=== PATIENT | male | born 1945 | race Caucasian/White ===

== ENCOUNTER 2019-01-17 12:26 | Inpatient (IN) ==
[2019-01-17 12:54] LABS: Bilirubin,Urine Negative (Negative); Blood,Urine Negative (Negative); Clarity,Urine Clear (Clear); Color,Urine Yellow (Yellow); Glucose,Urine (UA) >=1000 mg/dL (Normal); Ketones,Urine Negative (Negative); Leukocyte Esterase,Urine Negative (Negative); Nitrite,Urine Negative (Negative); PH,Urine 6.5 pH Units (5.0-8.0); Protein,Urine Negative (Neg-Trace); Specific Gravity,Urine 1.028 (1.010-1.025); Urobilinogen,Urine Normal (Normal)
[2019-01-17] MEDS: 0.9 % Sodium Chloride 1,000 ML IVC SCH ×5 (12:56→18:20)
[2019-01-17 13:03] LABS: Basophils # 0.1 K/mcL (0.0-0.2); Basophils % 0.7 %; Eosinophils % 0.1 %; Hematocrit 45.1 % (37.5-50.1); Hemoglobin 14.5 g/dL (12.9-16.9); Immature Granulocytes % 1.7 % (0-4); Lymphocytes % 6.7 %; Mean Corpuscular HGB Conc 32.2 g/dL (31.6-35.5); Mean Corpuscular Hemoglobin 29.5 pg (28.0-33.3); Mean Corpuscular Volume 91.7 fL (83.0-100.0); Mean Platelet Volume 11.7 fL (9.4-12.4); Monocytes # 1.3 K/mcL (0.0-1.3); Monocytes % 8.7 %; Neutrophils # 12.4 K/mcL (1.6-8.9); Platelet Count 388 K/mcL (140-400); Red Blood Count 4.92 M/mcL (4.19-5.50); Red Cell Distribution Width 12.5 % (11.5-14.5); Segmented Neutrophils % 82.1 %; White Blood Count 15.1 K/mcL (4.3-11.1)
[2019-01-17 13:07] LABS: VBG HCO3 19 mEq/L (21-27); VBG PCO2 29 mmHg (41-51); VBG PH 7.41 pH Units (7.32-7.42); VBG PO2 57 mmHg (25-50)
[2019-01-17 13:32] LABS: Calcium 9.8 mg/dL (8.6-10.3); Potassium 6.8 mEq/L (3.5-5.1); Troponin I 0.03 ng/mL (< 0.04)
[2019-01-17] MEDS ORDERED: *HR* Dextrose 50 % in Water (Syg) 50 ML SYRINGE IVP PRN (13:32)
[2019-01-17] MEDS ORDERED: 0.9 % Sodium Chloride 1,000 ML IVC ONE ×2 (13:32→13:39)
[2019-01-17] MEDS ORDERED: Insulin Human Regular 100 UNIT in 0.9 % Sodium Chloride 100 ML IVC SCH (13:45)
--- NOTE | 2019-01-17 13:52 | Emergency Department Note ---
Disposition Clinical Impression: Hyperkalemia Hyperglycemia due to type 2 diabetes mellitus Qualifiers: Diabetes mellitus half-way insulin use: without emt intermediate use Qualified Cod e(s): E11.65 - Type 2 diabetes mellitus with hyperglycemia Disposition: Admitted As Inpatient Condition: Fair Forms: ED Satisfaction Letter Time of Disposition: 14:02 Weakness HPI - General Chief complaint: ED Weakness Stated complaint: Weakness Time Seen by Provider: 01/17/19 12:29 Source: patient Mode of arrival: ambulatory Limitations: no limitations Nursing Notes Reviewed: Yes Vital Signs Reviewed: Yes - History of Present Illness HPI Narrative: 73-year-old male presents to the emergency department for generalized weakness. Does have history of diabetes. They said that he has had generalized weakness have been checking his blood sugars and they have been elevated. Does take metformin. Says been drinking a lot of milk said that sorry hydrate. Otherwise just feels weak family said he is not is normal self seems a little confused more recently. He has no fevers no chills no pain anywhere. He has no abdominal pain chest pain shortness of breath. Otherwise no other complaints at this time. Pain Scale: 0 - Related Data Home Medications Medication Instructions Recorded Confirmed Atorvastatin [Lipitor] 40 mg PO QPM 01/17/19 01/17/19 Cetirizine HCl 10 mg PO DAILY 01/17/19 01/17/19 Cyclobenzaprine [Flexeril] 10 mg PO TID 01/17/19 01/17/19 Esomeprazole Magnesium [Nexium] 40 mg PO DAILY 01/17/19 01/17/19 Ezetimibe 10 mg PO DAILY 01/17/19 01/17/19 Hydrochlorothiazide [Microzide] 12.5 mg PO DAILY 01/17/19 01/17/19 Losartan Potassium [Cozaar] 100 mg PO DAILY 01/17/19 01/17/19 Metformin HCl 500 mg PO DAILY 01/17/19 01/17/19 Pioglitazone HCl 30 mg PO DAILY 01/17/19 01/17/19 Tizanidine HCl 4 mg PO BID 01/17/19 01/17/19 Allergies Allergy/AdvReac Type Severity Reaction Status Date / Time bee venom protein (honey bee) Allergy Anaphylaxis Verified 01/17/19 13:02 [place] Allergy Swelling Verified 01/17/19 13:02 of Lip/Tongue/Throat All systems ED: reviewed and negative except as stated. Review of Systems: As Per HPI Past Medical History - Past Medical History Attestation: Yes The following information was validated with the patient. Source: patient Medical history: Reports: coronary artery disease, diabetes, hyperlipidemia, hypertension Psychiatric history: Reports: no psych history - Social History Smoking Status: Current every day smoker Alcohol use: Reports: none Drug use: Reports: none Physical Exam - General Limitations: no limitations General appearance: alert, anxious - Head Head exam: atraumatic, normocephalic, normal inspection - Eye Eye exam: Present: normal appearance, PERRL, EOMI - ENT ENT exam: normal exam, normal oropharynx, mucous membranes moist - Neck Neck exam: Present: normal inspection, full ROM, trachea midline - Chest Chest inspection: Present: normal inspection, symmetric chest wall rise - Respiratory Respiratory exam: Present: normal lung sounds bilaterally - Cardiovascular Cardiovascular exam: Present: regular rate, normal rhythm, normal heart sounds - Abdominal Exam Abdominal exam: Present: soft, Non-Tender, normal bowel sounds. Absent: tenderness, distention, guarding, rebound, rigidity - Extremities Exam Extremities exam: Present: normal inspection, full ROM. Absent: tenderness, pedal edema - Back Exam Back exam: Present: normal inspection, full ROM. Absent: tenderness, CVA tenderness (R), CVA tenderness (L) - Neurological Exam Neurological exam: Present: alert, oriented X3 - Skin Skin exam: Present: warm, dry, intact, normal color Course Vital Signs Temperature 97.9 F 01/17/19 12:29 Pulse Rate 111 01/17/19 12:29 Respiratory Rate 18 01/17/19 12:29 Blood Pressure 146/96 01/17/19 12:29 O2 Sat by Pulse Oximetry 97 01/17/19 12:29 Temperature 97.9 F 01/17/19 12:29 Pulse Rate 111 01/17/19 12:29 Respiratory Rate 18 01/17/19 12:29 Blood Pressure 146/96 01/17/19 12:29 O2 Sat by Pulse Oximetry 97 01/17/19 12:29 Weakness - MDM Narrative Medical decision making narrative: Patient elevated blood sugar on exam when he first arrived. Patient is alert and oriented with the seem mildly confused and they Jeramie is normal active self. Patient has been drinking a lot of fluid as well as been urinating a lot. The chair came back elevated 1400 he did not have an anion gap potassium was 6 there were no acute EKG changes are no signs of ectopy on telemetry. We will start patient on insulin 0.1 units per kilogram. As well as a total of 4 L of IV fluids. EKG did not show any acute signs. Patient did have decreased sodium but the corrected with glucose is 123. Spoke with the hospital to check and bed management to see if they are okay to take this on the floor versus whether this being an ICU admission. Patient will be admitted to either the batch trucker or the hospitalist at this time. Chest X-Ray 01/17/19 12:55 IMPRESSION: No acute findings D/ / Tila Munoz MD / Tila Munoz MD Interpreting Provider: Tila Munoz MD - Medical Records Medical records reviewed: Yes I reviewed the patient's medical records. - Lab Data Lab results reviewed: Yes I reviewed the patient's lab results. Result diagrams: 01/17/19 12:45 01/17/19 12:45 Lab Results 01/17/19 01/17/19 01/17/19 Range/Units 12:39 12:45 12:45 WBC 15.1 H (4.3-11.1) K/mcL RBC 4.92 (4.19-5.50) M/mcL Hgb 14.5 (12.9-16.9) g/dL Hct 45.1 (37.5-50.1) % MCV 91.7 (83.0-100.0) fL MCH 29.5 (28.0-33.3) pg MCHC 32.2 (31.6-35.5) g/dL RDW 12.5 (11.5-14.5) % Plt Count 388 (140-400) K/mcL MPV 11.7 (9.4-12.4) fL Immature Gran % 1.7 (0-4) % Seg Neutrophils % 82.1 % Lymphocytes % 6.7 % Monocytes % 8.7 % Eosinophils % 0.1 % Basophils % 0.7 % Neutrophils # 12.4 H (1.6-8.9) K/mcL Lymphocytes # 1.0 (0.6-4.6) K/mcL Monocytes # 1.3 (0.0-1.3) K/mcL Eosinophils # 0.0 (0.0-0.6) K/mcL Basophils # 0.1 (0.0-0.2) K/mcL VBG pH (7.32-7.42) pH Units VBG pCO2 (41-51) mmHg VBG pO2 (25-50) mmHg VBG HCO3 (21-27) mEq/L Sodium 109 L* (136-145) mEq/L Potassium 6.8 H* (3.5-5.1) mEq/L Chloride 78 L (98-107) mEq/L Carbon Dioxide 18 L (23-29) mEq/L BUN 49 H (8-23) mg/dL Creatinine 1.98 H (0.70-1.30) mg/dL Est GFR ( Amer) 40 L (> 60) Est GFR (Non-Af Amer) 33 L (> 60) BUN/Creatinine Ratio 25 (6-26) Glucose 1497 H* (70-105) mg/dL Calculated Osmolality 319 H (280-300) Lactic Acid (0.5-2.2) mmol/L Calcium 9.8 (8.6-10.3) mg/dL Troponin I 0.03 (< 0.04) ng/mL Beta-Hydroxybutyric Acd (0.02-0.27) mmol/L Urine Color Yellow (Yellow) Urine Clarity Clear (Clear) Urine pH 6.5 (5.0-8.0) pH Units Ur Specific [place] 1.028 H (1.010-1.025) Urine Protein Negative (Neg-Trace) mg/dL Urine Glucose (UA) >=1000 H (Normal) mg/dL Urine Ketones Negative (Negative) mg/dL Urine Blood Negative (Negative) Urine Nitrite Negative (Negative) Urine Bilirubin Negative (Negative) Urine Urobilinogen Normal (Normal) mg/dL Ur Leukocyte Esterase Negative (Negative) Ur Culture Indicated? NO (NO) 01/17/19 01/17/19 01/17/19 Range/Units 12:45 12:45 13:05 WBC (4.3-11.1) K/mcL RBC (4.19-5.50) M/mcL Hgb (12.9-16.9) g/dL Hct (37.5-50.1) % MCV (83.0-100.0) fL MCH (28.0-33.3) pg MCHC (31.6-35.5) g/dL RDW (11.5-14.5) % Plt Count (140-400) K/mcL MPV (9.4-12.4) fL Immature Gran % (0-4) % Seg Neutrophils % % Lymphocytes % % Monocytes % % Eosinophils % % Basophils % % Neutrophils # (1.6-8.9) K/mcL Lymphocytes # (0.6-4.6) K/mcL Monocytes # (0.0-1.3) K/mcL Eosinophils # (0.0-0.6) K/mcL Basophils # (0.0-0.2) K/mcL VBG pH 7.41 (7.32-7.42) pH Units VBG pCO2 29 L (41-51) mmHg VBG pO2 57 H (25-50) mmHg VBG HCO3 19 L (21-27) mEq/L Sodium (136-145) mEq/L Potassium (3.5-5.1) mEq/L Chloride (98-107) mEq/L Carbon Dioxide (23-29) mEq/L BUN (8-23) mg/dL Creatinine (0.70-1.30) mg/dL Est GFR ( Amer) (> 60) Est GFR (Non-Af Amer) (> 60) BUN/Creatinine Ratio (6-26) Glucose (70-105) mg/dL Calculated Osmolality (280-300) Lactic Acid 3.0 H (0.5-2.2) mmol/L Calcium (8.6-10.3) mg/dL Troponin I (< 0.04) ng/mL Beta-Hydroxybutyric Acd 1.38 H (0.02-0.27) mmol/L Urine Color (Yellow) Urine Clarity (Clear) Urine pH (5.0-8.0) pH Units Ur Specific [place] (1.010-1.025) Urine Protein (Neg-Trace) mg/dL Urine Glucose (UA) (Normal) mg/dL Urine Ketones (Negative) mg/dL Urine Blood (Negative) Urine Nitrite (Negative) Urine Bilirubin (Negative) Urine Urobilinogen (Normal) mg/dL Ur Leukocyte Esterase (Negative) Ur Culture Indicated? (NO) - Radiology Data Radiology results reviewed: Yes I reviewed the patient's radiology results. - EKG Data EKG attestation: Yes I reviewed and interpreted this EKG. EKG results narrative: EKG done at 1237 review myself and attending shows sinus rhythm rate of 112, MT interval 205, QRS 96, QTC 428. No acute ST changes there are hyperacute T waves no other T-wave changes. No other signs of ischemia. No signs of hypertrophy, heart, heart block. No WPW/Brug[place]/HOCM. No changes based on old EKG done 05/04/2004
[2019-01-17] MEDS ORDERED: D5% in 0.45% NACL 1,000 ML IVC PRN (14:04)
[2019-01-17] MEDS ORDERED: Naloxone 0.4 MG/ML INJ IVP PRN (14:13)
[2019-01-17] MEDS ORDERED: Insulin Regular, Human 100 UNIT/ML IV ONE (14:15)
--- NOTE | 2019-01-17 14:20 | Emergency Department Note ---
Disposition Clinical Impression: Hyperkalemia Hyperglycemia due to type 2 diabetes mellitus Qualifiers: Diabetes mellitus intermediate insulin use: without termite exterminator helper use Qualified Cod e(s): E11.65 - Type 2 diabetes mellitus with hyperglycemia Disposition: Admitted As Inpatient Condition: Fair Forms: ED Satisfaction Letter Time of Disposition: 14:20 General Adult HPI - General Chief complaint: ED Weakness Stated complaint: Weakness Time Seen by Provider: 01/17/19 12:29 Source: patient Mode of arrival: ambulatory Limitations: no limitations - History of Present Illness Pain Scale: 0 - Related Data Home Medications Medication Instructions Recorded Confirmed Atorvastatin [Lipitor] 40 mg PO QPM 01/17/19 01/17/19 Cetirizine HCl 10 mg PO DAILY 01/17/19 01/17/19 Cyclobenzaprine [Flexeril] 10 mg PO TID 01/17/19 01/17/19 Esomeprazole Magnesium [Nexium] 40 mg PO DAILY 01/17/19 01/17/19 Ezetimibe 10 mg PO DAILY 01/17/19 01/17/19 Hydrochlorothiazide [Microzide] 12.5 mg PO DAILY 01/17/19 01/17/19 Losartan Potassium [Cozaar] 100 mg PO DAILY 01/17/19 01/17/19 Metformin HCl 500 mg PO DAILY 01/17/19 01/17/19 Pioglitazone HCl 30 mg PO DAILY 01/17/19 01/17/19 Tizanidine HCl 4 mg PO BID 01/17/19 01/17/19 Allergies Allergy/AdvReac Type Severity Reaction Status Date / Time bee venom protein (honey bee) Allergy Anaphylaxis Verified 01/17/19 13:02 [place] Allergy Swelling Verified 01/17/19 13:02 of Lip/Tongue/Throat Past Medical History - Past Medical History Medical history: Reports: coronary artery disease, diabetes, hyperlipidemia, hypertension Psychiatric history: Reports: no psych history - Social History Smoking Status: Current every day smoker Alcohol use: Reports: none Drug use: Reports: none Physical Exam - General Limitations: no limitations General appearance: alert, anxious Course Vital Signs Temperature 97.9 F 01/17/19 12:29 Pulse Rate 111 01/17/19 12:29 Respiratory Rate 18 01/17/19 12:29 Blood Pressure 146/96 01/17/19 12:29 O2 Sat by Pulse Oximetry 97 01/17/19 12:29 Temperature 97.9 F 01/17/19 12:29 Pulse Rate 111 01/17/19 12:29 Respiratory Rate 18 01/17/19 12:29 Blood Pressure 146/96 01/17/19 12:29 O2 Sat by Pulse Oximetry 97 01/17/19 12:29 Medical Decision Making - Lab Data Result diagrams: 01/17/19 12:45 01/17/19 12:45 Lab Results 01/17/19 01/17/19 01/17/19 Range/Units 12:39 12:39 12:39 WBC (4.3-11.1) K/mcL RBC (4.19-5.50) M/mcL Hgb (12.9-16.9) g/dL Hct (37.5-50.1) % MCV (83.0-100.0) fL MCH (28.0-33.3) pg MCHC (31.6-35.5) g/dL RDW (11.5-14.5) % Plt Count (140-400) K/mcL MPV (9.4-12.4) fL Immature Gran % (0-4) % Seg Neutrophils % % Lymphocytes % % Monocytes % % Eosinophils % % Basophils % % Neutrophils # (1.6-8.9) K/mcL Lymphocytes # (0.6-4.6) K/mcL Monocytes # (0.0-1.3) K/mcL Eosinophils # (0.0-0.6) K/mcL Basophils # (0.0-0.2) K/mcL VBG pH (7.32-7.42) pH Units VBG pCO2 (41-51) mmHg VBG pO2 (25-50) mmHg VBG HCO3 (21-27) mEq/L Sodium (136-145) mEq/L Potassium (3.5-5.1) mEq/L Chloride (98-107) mEq/L Carbon Dioxide (23-29) mEq/L BUN (8-23) mg/dL Creatinine (0.70-1.30) mg/dL Est GFR ( Amer) (> 60) Est GFR (Non-Af Amer) (> 60) BUN/Creatinine Ratio (6-26) Glucose (70-105) mg/dL POC Glucose > 600 H* > 600 H* (70-99) mg/dL Calculated Osmolality (280-300) Lactic Acid (0.5-2.2) mmol/L Calcium (8.6-10.3) mg/dL Troponin I (< 0.04) ng/mL Beta-Hydroxybutyric Acd (0.02-0.27) mmol/L Urine Color Yellow (Yellow) Urine Clarity Clear (Clear) Urine pH 6.5 (5.0-8.0) pH Units Ur Specific [place] 1.028 H (1.010-1.025) Urine Protein Negative (Neg-Trace) mg/dL Urine Glucose (UA) >=1000 H (Normal) mg/dL Urine Ketones Negative (Negative) mg/dL Urine Blood Negative (Negative) Urine Nitrite Negative (Negative) Urine Bilirubin Negative (Negative) Urine Urobilinogen Normal (Normal) mg/dL Ur Leukocyte Esterase Negative (Negative) Ur Culture Indicated? NO (NO) 01/17/19 01/17/19 01/17/19 Range/Units 12:45 12:45 12:45 WBC 15.1 H (4.3-11.1) K/mcL RBC 4.92 (4.19-5.50) M/mcL Hgb 14.5 (12.9-16.9) g/dL Hct 45.1 (37.5-50.1) % MCV 91.7 (83.0-100.0) fL MCH 29.5 (28.0-33.3) pg MCHC 32.2 (31.6-35.5) g/dL RDW 12.5 (11.5-14.5) % Plt Count 388 (140-400) K/mcL MPV 11.7 (9.4-12.4) fL Immature Gran % 1.7 (0-4) % Seg Neutrophils % 82.1 % Lymphocytes % 6.7 % Monocytes % 8.7 % Eosinophils % 0.1 % Basophils % 0.7 % Neutrophils # 12.4 H (1.6-8.9) K/mcL Lymphocytes # 1.0 (0.6-4.6) K/mcL Monocytes # 1.3 (0.0-1.3) K/mcL Eosinophils # 0.0 (0.0-0.6) K/mcL Basophils # 0.1 (0.0-0.2) K/mcL VBG pH (7.32-7.42) pH Units VBG pCO2 (41-51) mmHg VBG pO2 (25-50) mmHg VBG HCO3 (21-27) mEq/L Sodium 109 L* (136-145) mEq/L Potassium 6.8 H* (3.5-5.1) mEq/L Chloride 78 L (98-107) mEq/L Carbon Dioxide 18 L (23-29) mEq/L BUN 49 H (8-23) mg/dL Creatinine 1.98 H (0.70-1.30) mg/dL Est GFR ( Amer) 40 L (> 60) Est GFR (Non-Af Amer) 33 L (> 60) BUN/Creatinine Ratio 25 (6-26) Glucose 1497 H* (70-105) mg/dL POC Glucose (70-99) mg/dL Calculated Osmolality 319 H (280-300) Lactic Acid (0.5-2.2) mmol/L Calcium 9.8 (8.6-10.3) mg/dL Troponin I 0.03 (< 0.04) ng/mL Beta-Hydroxybutyric Acd 1.38 H (0.02-0.27) mmol/L Urine Color (Yellow) Urine Clarity (Clear) Urine pH (5.0-8.0) pH Units Ur Specific [place] (1.010-1.025) Urine Protein (Neg-Trace) mg/dL Urine Glucose (UA) (Normal) mg/dL Urine Ketones (Negative) mg/dL Urine Blood (Negative) Urine Nitrite (Negative) Urine Bilirubin (Negative) Urine Urobilinogen (Normal) mg/dL Ur Leukocyte Esterase (Negative) Ur Culture Indicated? (NO) 01/17/19 01/17/19 Range/Units 12:45 13:05 WBC (4.3-11.1) K/mcL RBC (4.19-5.50) M/mcL Hgb (12.9-16.9) g/dL Hct (37.5-50.1) % MCV (83.0-100.0) fL MCH (28.0-33.3) pg MCHC (31.6-35.5) g/dL RDW (11.5-14.5) % Plt Count (140-400) K/mcL MPV (9.4-12.4) fL Immature Gran % (0-4) % Seg Neutrophils % % Lymphocytes % % Monocytes % % Eosinophils % % Basophils % % Neutrophils # (1.6-8.9) K/mcL Lymphocytes # (0.6-4.6) K/mcL Monocytes # (0.0-1.3) K/mcL Eosinophils # (0.0-0.6) K/mcL Basophils # (0.0-0.2) K/mcL VBG pH 7.41 (7.32-7.42) pH Units VBG pCO2 29 L (41-51) mmHg VBG pO2 57 H (25-50) mmHg VBG HCO3 19 L (21-27) mEq/L Sodium (136-145) mEq/L Potassium (3.5-5.1) mEq/L Chloride (98-107) mEq/L Carbon Dioxide (23-29) mEq/L BUN (8-23) mg/dL Creatinine (0.70-1.30) mg/dL Est GFR ( Amer) (> 60) Est GFR (Non-Af Amer) (> 60) BUN/Creatinine Ratio (6-26) Glucose (70-105) mg/dL POC Glucose (70-99) mg/dL Calculated Osmolality (280-300) Lactic Acid 3.0 H (0.5-2.2) mmol/L Calcium (8.6-10.3) mg/dL Troponin I (< 0.04) ng/mL Beta-Hydroxybutyric Acd (0.02-0.27) mmol/L Urine Color (Yellow) Urine Clarity (Clear) Urine pH (5.0-8.0) pH Units Ur Specific [place] (1.010-1.025) Urine Protein (Neg-Trace) mg/dL Urine Glucose (UA) (Normal) mg/dL Urine Ketones (Negative) mg/dL Urine Blood (Negative) Urine Nitrite (Negative) Urine Bilirubin (Negative) Urine Urobilinogen (Normal) mg/dL Ur Leukocyte Esterase (Negative) Ur Culture Indicated? (NO) Attestation Statement - Attestation Attestation: I reviewed the residents documentation and agree with the residents assessment and plan of care. I have personally had face to face time with the patient. (Brief History, Brief Exam, and MDM) I personally supervised and was present for the [place]/critical portions of the following procedures completed by the resident: EKG 73 mariluz old male presents to the eD with complaints of hyperglycemia and weakness. He appears to have a blood glucose of 1497 without a gap presnets or acidosis and mild ketones. This is lkely a HHS presentation and patinet had potassium of 6.8 which will likely decreased during IVF therapy and insulin ther apy. Disscussed case with pharmacy and we will admit ot medicine possibly ICU with potassium recheck every 2 hours
[2019-01-17] MEDS ORDERED: D5% in 0.45% NACL w KCl 20 MEQ/1,000 ML MLS IVC PRN (14:45)
--- NOTE | 2019-01-17 14:46 | Internal Med History&Physical ---
Date of Encounter: 01/17/19 Time of Encounter: 14:16 Internal Medicine - H&P: HPI Chief complaint: Weakness Admitted From: Home Plans for Post Hospital Care: Home History of present illness: Mr. Mcadams is a 73 year old male with hx of NIDDM and HLD presents with generalized weakness and found to be in HHS. Patient says that he has been feeling generally weak for 2 months now. Has polyuria and polydipsia and says that all water he drinks goes right through him. Is on metformin and pioglitazone for his diabetes. Says that over the last 2 months when he takes his blood sugar just as high. Has never been on insulin before. Follows with Dr. Marlee Shah for his diabetes. Has a cough but says this is because his mouth is so dry. Not coughing anything up. Denies shortness of breath, chest pain, abdominal pain, nausea, or vomiting. Besides the polyuria, no other urinary symptoms. Denies dysuria. Very profound generalized weakness. Denies focal weakness, numbness, or tingling. Denies nausea or vomiting. Past Med Surg Social Fam HX - Past Medical History Medical history: coronary artery disease, diabetes, hyperlipidemia, hypertension Additional medical history: Type 1 diabetes Psychiatric history: no psych history - Past Surgical History Additional surgical history: Surgical mesh - Social History Smoking Status: Current every day smoker Alcohol use: none Drug use: none Internal Medicine - H&P: Meds Atorvastatin [Lipitor] 40 mg PO QPM 01/17/19 [History] Cetirizine HCl 10 mg PO DAILY 01/17/19 [History] Cyclobenzaprine [Flexeril] 10 mg PO TID 01/17/19 [History] Esomeprazole Magnesium [Nexium] 40 mg PO DAILY 01/17/19 [History] Ezetimibe 10 mg PO DAILY 01/17/19 [History] Hydrochlorothiazide [Microzide] 12.5 mg PO DAILY 01/17/19 [History] Losartan Potassium [Cozaar] 100 mg PO DAILY 01/17/19 [History] Metformin HCl 500 mg PO DAILY 01/17/19 [History] Pioglitazone HCl 30 mg PO DAILY 01/17/19 [History] Tizanidine HCl 4 mg PO BID 01/17/19 [History] Allergy/AdvReac Type Severity Reaction Status Date / Time bee venom protein (honey bee) Allergy Anaphylaxis Verified 01/17/19 13:02 [place] Allergy Swelling Verified 01/17/19 13:02 of Lip/Tongue/Throat Review of systems: General: Fevers / Chills / Weight loss / Night sweats Eyes: Blurry Vision / Change in Vision HENT: Ear Pain / Ear Drainage / Rhinorrhea / Throat Pain / Lymphadenopathy Cardiovascular: Chest Pain / Palpatations / Orthopnea / VILLEDA / Weight gain Lungs: Dyspnea / Wheezing / Cough / Sputum production / Pleurisy Abdomen: Abdomen pain / Abdominal distention / Nausea / Vomiting / Diarrhea / Const : Dysuria / Urinary Frequency / Urinary Urgency / Hematuria / Polyuria Extremities: LE edema / Ext pain / Ext erythema Skin: Rashes / Abrasions / Contusions Psych: Hallucinations / Anxiety / Depression Neuro: Weakness / Numbness / Tingling / Facial Droop / Dysphagia - Constitutional Vitals: Temp Pulse Resp BP Pulse Ox 97.9 F 111 18 146/96 97 01/17/19 12:29 01/17/19 12:29 01/17/19 12:29 01/17/19 12:29 01/17/19 12:29 Exam: General: Ill-appearing and in no acute distress. Frail appearing. HEENT: No erythema of posterior pharynx. No exudates. Lymphatics: No mandibular or cervical lymphadenopathy Cardiovascular: RRR. No murmurs. No chest wall tenderness. Lungs: Clear to auscelltation bilaterally. Regular chest rise. Abdomen: Non-tender. No rebound or gaurding. Nl bowel sounds. Extremities: No edema. 2+ pulses radial and pedal pulses Skin: No rahses, abrasions, or contusions. Nl cap refill. Psych: Nl attention. A&Ox3 Neuro: marble cutter II-XII intact. Diffuse 3/5 strength. Sensation to light touch and pinprick intact. [id number]-[id number] and ROM intact. No PD. Internal Med - H&P Results - Labs CBC & Chem 7: 01/17/19 12:45 01/17/19 14:42 Labs: Short CBC 01/17/19 Range/Units 12:45 WBC 15.1 H (4.3-11.1) K/mcL Hgb 14.5 (12.9-16.9) g/dL Hct 45.1 (37.5-50.1) % Plt Count 388 (140-400) K/mcL Neutrophils # 12.4 H (1.6-8.9) K/mcL BMP 01/17/19 12:45 Sodium 109 L* Potassium 6.8 H* Chloride 78 L Carbon Dioxide 18 L BUN 49 H Creatinine 1.98 H Glucose 1497 H* Calcium 9.8 Cardiac Enzymes 01/17/19 Range/Units 12:45 Troponin I 0.03 (< 0.04) ng/mL Urine 01/17/19 Range/Units 12:39 Urine Color Yellow (Yellow) Urine Clarity Clear (Clear) Urine pH 6.5 (5.0-8.0) pH Units Ur Specific [place] 1.028 H (1.010-1.025) Urine Protein Negative (Neg-Trace) mg/dL Urine Glucose (UA) >=1000 H (Normal) mg/dL - ABG Interpretation ABG results: 01/17/19 13:05 VBG pH 7.41 VBG pCO2 29 L VBG pO2 57 H VBG HCO3 19 L - Impressions ITS Impressions Chest X-Ray 01/17/19 12:55 IMPRESSION: No acute findings D/ / Tila Munoz MD / Tila Munoz MD Interpreting Provider: Tila Munoz MD - Assessment and Plan (1) Hyperglycemic hyperosmolar nonketotic coma Current Visit: Yes Status: Acute Assessment and plan: Patient with hx of NIDDM and HLD presents with generalized weakness in the setting of normal vitals, profound generalized weakness on exam, and glucose of 1497 on admission with Occluded serum osmolality of 320 w/o AG. -Meets diagnostic criteria of HHS: Suspect this has been progressing for quite some time Notes generalized weakness for 2 months Over this time, cbgs so high that glucometer only reads as "high" -Possible inciting causes: Likely undertreated diabetes. HgA1c of 18.7 Leukocytosis but no evidence of infection History of hyperlipidemia so will add on lipase but notably no abdominal pain Troponin negative and no EKG changes PLAN: - HHS protocol with insulin drip and aggressive IVF and K replacement - BMP q6 - Blood cultures and low threshold for further w/u and to start empiric ABs (2) Diabetes Current Visit: Yes Status: Acute Assessment and plan: Hx of NIDDM. Clearly this patient will need to be discharged on insulin. - Interventions per above Qualifiers: Diabetes mellitus type: type 2 Diabetes mellitus penitentiary insulin use: without moth exterminator use Diabetes mellitus complication status: with hyperglycem ia Qualified Code(s): E11.65 - Type 2 diabetes mellitus with hyperglycemia (3) Metabolic acidosis Current Visit: Yes Status: Acute Assessment and plan: Mild NAGMA secondary to metabolic derangements from HHS. (4) Respiratory alkalosis Current Visit: Yes Status: Acute Assessment and plan: Secondary to HHS (5) Hyponatremia Current Visit: Yes Status: Acute Assessment and plan: Pseudohyponatremia in setting of HHS. Corrected sodium on admission 143. (6) CKD (chronic kidney disease) stage 3, GFR 30-59 ml/min Current Visit: Yes Status: Acute Assessment and plan: Surprisingly at his baseline (7) Leukocytosis Current Visit: Yes Status: Acute Assessment and plan: No evidence of acute infection. - Blood cultures and low threshold for further w/u and to start empiric ABs Qualifiers: Leukocytosis type: unspecified Qualified Code(s): D72.829 - Elevated white blood cell count, unspecified (8) Hyperkalemia Current Visit: Yes Status: Acute Assessment and plan: We will rapidly corrected with insulin drip
[2019-01-17 15:30] LABS: Albumin 3.4 g/dL (3.5-5.7); BUN/Creatinine Ratio 27 (6-26); Blood Urea Nitrogen 47 mg/dL (8-23); Calcium 8.4 mg/dL (8.6-10.3); Carbon Dioxide 19 mEq/L (23-29); Chloride 90 mEq/L (98-107); Chol/HDL Ratio 4.4 (0-4.9); Cholesterol 110 mg/dL (< 200); HDL Cholesterol 25 mg/dL (40-59); Lipase 167 Units/L (11-82); Magnesium 1.8 mg/dL (1.6-2.6); Osmolality,Calculated 320 (280-300); Phosphorous 2.6 mg/dL (2.7-4.5); Potassium 5.4 mEq/L (3.5-5.1); Sodium 118 mEq/L (136-145); Triglycerides 666 mg/dL (< 150); eGFR For African Americans 48 (> 60); eGFR For Non-African Americans 39 (> 60)
[2019-01-17] MEDS: Insulin Human Regular 100 UNIT in 0.9 % Sodium Chloride 100 ML IVC SCH (16:21)
[2019-01-17 17:58] LABS: Calcium 8.6 mg/dL (8.6-10.3); Potassium 4.8 mEq/L (3.5-5.1)
[2019-01-17] MEDS: *HR* Heparin 5,000 UNIT/ML VIAL SQ SCH (18:05)
[2019-01-17] MEDS: 0.9 % Sodium Chloride w KCl 20 MEQ/1,000 ML MLS IVC SCH ×3 (18:21→23:35)
[2019-01-17 22:36] LABS: Calcium 8.8 mg/dL (8.6-10.3); Potassium 4.7 mEq/L (3.5-5.1)
[2019-01-18 00:02] LABS: Glucose 1215 mg/dL (70-105)
[2019-01-18 01:20] LABS: Basophils # 0.1 K/mcL (0.0-0.2); Basophils % 0.5 %; Eosinophils # 0.3 K/mcL (0.0-0.6); Eosinophils % 1.5 %; Hematocrit 33.3 % (37.5-50.1); Immature Granulocytes % 1.5 % (0-4); Lymphocytes # 4.7 K/mcL (0.6-4.6); Lymphocytes % 23.5 %; Mean Corpuscular HGB Conc 34.5 g/dL (31.6-35.5); Mean Corpuscular Hemoglobin 29.3 pg (28.0-33.3); Mean Platelet Volume 11.6 fL (9.4-12.4); Monocytes # 1.8 K/mcL (0.0-1.3); Monocytes % 8.9 %; Neutrophils # 12.9 K/mcL (1.6-8.9); Platelet Count 280 K/mcL (140-400); Red Blood Count 3.93 M/mcL (4.19-5.50); Red Cell Distribution Width 11.4 % (11.5-14.5); Segmented Neutrophils % 64.1 %; White Blood Count 20.1 K/mcL (4.3-11.1)
[2019-01-18 01:21] LABS: Hemoglobin 11.5 g/dL (12.9-16.9); Mean Corpuscular Volume 84.7 fL (83.0-100.0)
[2019-01-18 01:37] LABS: BUN/Creatinine Ratio 24 (6-26); Blood Urea Nitrogen 33 mg/dL (8-23); Calcium 8.5 mg/dL (8.6-10.3); Carbon Dioxide 22 mEq/L (23-29); Chloride 113 mEq/L (98-107); Potassium 4.4 mEq/L (3.5-5.1); Sodium 138 mEq/L (136-145); eGFR For African Americans > 60 (> 60); eGFR For Non-African Americans 50 (> 60)
[2019-01-18] MEDS: 0.9 % Sodium Chloride w KCl 20 MEQ/1,000 ML MLS IVC SCH (02:20)
[2019-01-18 02:41] LABS: Glucose 381 mg/dL (70-105); Osmolality,Calculated 309 (280-300)
[2019-01-18] MEDS: Insulin Human Regular 100 UNIT in 0.9 % Sodium Chloride 100 ML IVC SCH (03:42)
[2019-01-18] MEDS: *HR* Heparin 5,000 UNIT/ML VIAL SQ SCH ×2 (04:34→17:01)
[2019-01-18] MEDS ORDERED: D5% in Water 1,000 ML IVC PRN (04:39)
[2019-01-18] MEDS ORDERED: Dextrose Gel 15 GM/37.5 ML TUBE PO PRN ×2 (04:39)
[2019-01-18] MEDS ORDERED: Insulin DETEMIR 100 UNIT/ML X5UNITS SQ ONE (04:39)
[2019-01-18] MEDS ORDERED: *HR* Dextrose 50 % in Water (Syg) 50 ML SYRINGE IVP PRN (04:39)
[2019-01-18] MEDS ORDERED: Insulin LISPRO 300 UNITS/3 ML VIAL SQ SCH ×3 (07:30→21:00)
--- NOTE | 2019-01-18 09:05 | Internal Med Progress Note ---
Hospitalist Progress Note - Encounter Date of Encounter: 01/18/19 Time of Encounter: 09:02 - Subjective Interval History: Patient seen and examined. Patient is now off of insulin drip and tolerating PO diet. Patient notes he is still weak but feeling better. Transfer patient to telemetry floor. - Exam Vitals: Temp Pulse Resp BP Pulse Ox 98.0 F 83 16 133/82 93 01/18/19 07:01 01/18/19 08:15 01/18/19 07:01 01/18/19 07:01 01/18/19 08:15 Exam: General: Ill-appearing and in no acute distress. Frail appearing. HEENT: No erythema of posterior pharynx. No exudates. Lymphatics: No mandibular or cervical lymphadenopathy Cardiovascular: RRR. No murmurs. No chest wall tenderness. Lungs: Clear to auscelltation bilaterally. Regular chest rise. Abdomen: Non-tender. No rebound or gaurding. Nl bowel sounds. Extremities: No edema. 2+ pulses radial and pedal pulses Skin: No rahses, abrasions, or contusions. Nl cap refill. Psych: Nl attention. 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 Diffuse 3/5 strength. Sensation to light touch and pinprick intact. Nzsvci-[id number]-whimlx and ROM intact. No PD. - Assessment and Plan (1) Hyperglycemic hyperosmolar nonketotic coma Current Visit: Yes Status: Acute Assessment and Plan: Patient with hx of NIDDM and HLD presents with generalized weakness in the setting of normal vitals, profound generalized weakness on exam, and glucose of 1497 on admission with Occluded serum osmolality of 320 w/o AG. -Patient responded well to insulin drip and aggressive IVF -FSBS down to 100s and patient tolerating PO diet -electrolytes stable PLAN: - Continue sliding scale subq insulin; patient will need insuiln on discharge with A1C >18 - Diabetes education - Transfer to telemtry floor (2) Diabetes Current Visit: Yes Status: Acute Assessment and Plan: Hx of NIDDM. Clearly this patient will need to be discharged on insulin. - Interventions per above (3) Metabolic acidosis Current Visit: Yes Status: Acute Assessment and Plan: Mild NAGMA secondary to metabolic derangements from HHS; improved (4) Hyponatremia Current Visit: Yes Status: Acute (5) CKD (chronic kidney disease) stage 3, GFR 30-59 ml/min Current Visit: Yes Status: Acute (6) Leukocytosis Current Visit: Yes Status: Acute (7) Leukocytosis Current Visit: Yes Status: Acute Assessment and Plan: Leukocytosis worse form admission; no overt signs of infection; AFVSS, CXR on ad misison stable Plan: repeat lactic acid and procal Hold abx for now as there is no clear signs of infection besides leukocytosis - Time Spent with Patient Total time spent is greater than 50% in coordination of care (as documented) at patient's floor/unit and/or counseling patient: 35 Plan of Care Discussed with: patient Internal Medicine: Result - Labs CBC & Chem 7: 01/18/19 00:40 01/18/19 00:40 Labs: Short CBC 01/17/19 01/18/19 Range/Units 12:45 00:40 WBC 15.1 H 20.1 H (4.3-11.1) K/mcL Hgb 14.5 11.5 L D (12.9-16.9) g/dL Hct 45.1 33.3 L (37.5-50.1) % Plt Count 388 280 (140-400) K/mcL Neutrophils # 12.4 H 12.9 H (1.6-8.9) K/mcL BMP 01/17/19 01/17/19 01/17/19 12:45 14:42 15:59 Sodium 109 L* 118 L* D Potassium 6.8 H* 5.4 H Chloride 78 L 90 L Carbon Dioxide 18 L 19 L BUN 49 H 47 H Creatinine 1.98 H 1.71 H Glucose 1497 H* 1215 H* 984 H* Calcium 9.8 8.4 L 01/17/19 01/17/19 01/17/19 17:17 18:21 21:54 Sodium 129 L D 133 L Potassium 4.8 4.7 Chloride 99 105 Carbon Dioxide 20 L 20 L BUN 41 H 36 H Creatinine 1.60 H 1.45 H Glucose 743 H* 642 H* 519 H* Calcium 8.6 8.8 01/18/19 00:40 Sodium 138 Potassium 4.4 Chloride 113 H Carbon Dioxide 22 L BUN 33 H Creatinine 1.39 H Glucose 381 H Calcium 8.5 L Cardiac Enzymes 01/17/19 Range/Units 12:45 Troponin I 0.03 (< 0.04) ng/mL Liver Function 01/17/19 Range/Units 14:42 Albumin 3.4 L (3.5-5.7) g/dL Urine 01/17/19 Range/Units 12:39 Urine Color Yellow (Yellow) Urine Clarity Clear (Clear) Urine pH 6.5 (5.0-8.0) pH Units Ur Specific [place] 1.028 H (1.010-1.025) Urine Protein Negative (Neg-Trace) mg/dL Urine Glucose (UA) >=1000 H (Normal) mg/dL - Impressions Impressions Chest X-Ray 01/17/19 12:55 IMPRESSION: No acute findings D/ / Tila Munoz MD / Tila Munoz MD Interpreting Provider: Tila Munoz MD Consult Discharge Plan - Plan Referrals: NONE,PCP [Primary Care Provider] - (2) Diabetes Qualifiers: Diabetes mellitus type: type 2 Diabetes mellitus mcfp insulin use: without long term care pharmacist use Diabetes mellitus complication status: with hyperglycemia Qualified Code(s): E11.65 - Type 2 diabetes mellitus with hyperglycemia (6) Leukocytosis Qualifiers: Leukocytosis type: unspecified Qualified Code(s): D72.829 - Elevated white blood cell count, unspecified
[2019-01-18] MEDS: hydroCHLOROthiazide 25 MG TABLET PO SCH (11:28)
[2019-01-18] MEDS: Loratadine 10 MG TABLET PO SCH (11:28)
[2019-01-18] MEDS: (Ezetimibe 10 MG) PO SCH (11:29)
[2019-01-18] MEDS: Insulin LISPRO 300 UNITS/3 ML VIAL SQ SCH ×2 (12:17→17:02)
[2019-01-18 12:53] LABS: Calcium 8.3 mg/dL (8.6-10.3)
[2019-01-19 04:37] LABS: Hemoglobin 11.1 g/dL (12.9-16.9); Mean Corpuscular HGB Conc 33.6 g/dL (31.6-35.5); Mean Corpuscular Hemoglobin 29.4 pg (28.0-33.3); Mean Corpuscular Volume 87.5 fL (83.0-100.0); Mean Platelet Volume 11.5 fL (9.4-12.4); Platelet Count 323 K/mcL (140-400); Red Blood Count 3.77 M/mcL (4.19-5.50)
[2019-01-19 04:59] LABS: BUN/Creatinine Ratio 16 (6-26); Blood Urea Nitrogen 19 mg/dL (8-23); Calcium 8.1 mg/dL (8.6-10.3); Carbon Dioxide 20 mEq/L (23-29); Chloride 103 mEq/L (98-107); Glucose 278 mg/dL (70-105); Osmolality,Calculated 284 (280-300); Sodium 131 mEq/L (136-145); eGFR For African Americans > 60 (> 60); eGFR For Non-African Americans > 60 (> 60)
[2019-01-19] MEDS: *HR* Heparin 5,000 UNIT/ML VIAL SQ SCH ×2 (05:55→16:51)
[2019-01-19] MEDS: hydroCHLOROthiazide 25 MG TABLET PO SCH (09:56)
[2019-01-19] MEDS: Loratadine 10 MG TABLET PO SCH (09:56)
[2019-01-19] MEDS: (Ezetimibe 10 MG) PO SCH (09:58)
[2019-01-19] MEDS: Insulin LISPRO 300 UNITS/3 ML VIAL SQ SCH ×3 (11:46→16:52)
--- NOTE | 2019-01-19 12:49 | Electrocardiograph Report ---
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
[2019-01-19] MEDS ORDERED: Insulin Human Regular 10 UNIT in 0.9 % Sodium Chloride 10 ML IV ONE (13:47)
[2019-01-19] MEDS ORDERED: 0.9 % Sodium Chloride 1,000 ML IVC ONE (13:47)
--- NOTE | 2019-01-19 13:51 | Internal Med Progress Note ---
Hospitalist Progress Note - Encounter Date of Encounter: 01/19/19 Time of Encounter: 13:48 - Subjective Interval History: Patient seen and examined. No acute events overnight. Patient still reports significant weakness. - Exam Vitals: Temp Pulse Resp BP Pulse Ox 97.9 F 90 18 117/74 93 01/19/19 11:07 01/19/19 12:16 01/19/19 11:07 01/19/19 11:07 01/19/19 11:07 Exam: General: Ill-appearing and in no acute distress. Frail appearing. HEENT: No erythema of posterior pharynx. No exudates. Lymphatics: No mandibular or cervical lymphadenopathy Cardiovascular: RRR. No murmurs. No chest wall tenderness. Lungs: Clear to auscelltation bilaterally. Regular chest rise. Abdomen: Non-tender. No rebound or gaurding. Nl bowel sounds. Extremities: No edema. 2+ pulses radial and pedal pulses Skin: No rahses, abrasions, or contusions. Nl cap refill. Psych: Nl attention. 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 Diffuse 3/5 strength. Sensation to light touch and pinprick intact. [id number]-[id number]-[id number] and ROM intact. No PD. - Assessment and Plan (1) Hyperglycemic hyperosmolar nonketotic coma Current Visit: Yes Status: Acute Assessment and Plan: Patient with hx of NIDDM and HLD presents with generalized weakness in the setting of normal vitals, profound generalized weakness on exam, and glucose of 1497 on admission with Occluded serum osmolality of 320 w/o AG. -Patient responded well to insulin drip and aggressive IVF -Patient's blood sugars are still very high despite being on high dose sliding scale as well as increased basal insulin PLAN: - Continue high dose sliding scale subq insulin; patient will need insuiln on discharge with A1C >18 - Increase Levemir 20 units subQ qHS - One time dose of 10 mg IV insulin and 1 liter bolus of normal saline - Diabetes education (2) Diabetes Current Visit: Yes Status: Acute Assessment and Plan: Hx of NIDDM. Clearly this patient will need to be discharged on insulin. - Interventions per above (3) Metabolic acidosis Current Visit: Yes Status: Acute Assessment and Plan: Mild NAGMA secondary to metabolic derangements from HHS; improved (4) Hyponatremia Current Visit: Yes Status: Acute Assessment and Plan: Pseudohyponatremia in setting of HHS. Corrected sodium on admission 143. (5) CKD (chronic kidney disease) stage 3, GFR 30-59 ml/min Current Visit: Yes Status: Acute Assessment and Plan: Surprisingly at his baseline (6) Leukocytosis Current Visit: Yes Status: Acute Assessment and Plan: No evidence of acute infection. Potentially due to severe dehydration and HHS - Trending down now - Time Spent with Patient Total time spent is greater than 50% in coordination of care (as documented) at patient's floor/unit and/or counseling patient: 35 minutes Plan of Care Discussed with: patient Internal Medicine: Result - Labs CBC & Chem 7: 01/19/19 03:18 01/19/19 03:18 Labs: Short CBC 01/19/19 Range/Units 03:18 WBC 19.0 H (4.3-11.1) K/mcL Hgb 11.1 L (12.9-16.9) g/dL Hct 33.0 L (37.5-50.1) % Plt Count 323 (140-400) K/mcL BMP 01/19/19 03:18 Sodium 131 L Potassium 4.0 Chloride 103 Carbon Dioxide 20 L BUN 19 Creatinine 1.17 Glucose 278 H Calcium 8.1 L Consult Discharge Plan - Plan Referrals: NONE,PCP [Primary Care Provider] - (2) Diabetes Qualifiers: Diabetes mellitus type: type 2 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
[2019-01-19] MEDS ORDERED: Insulin DETEMIR 100 UNIT/ML X5UNITS SQ SCH ×2 (21:00)
[2019-01-19] MEDS ORDERED: Insulin LISPRO 300 UNITS/3 ML VIAL SQ SCH (21:00)
[2019-01-19] MEDS: Artificial Tears SOLN 15 ML BOTTLE BOTH EYES SCH (21:42)
[2019-01-20 05:14] LABS: Hematocrit 32.2 % (37.5-50.1); Mean Corpuscular HGB Conc 34.2 g/dL (31.6-35.5); Mean Corpuscular Hemoglobin 29.3 pg (28.0-33.3); Mean Corpuscular Volume 85.6 fL (83.0-100.0); Mean Platelet Volume 10.9 fL (9.4-12.4); Platelet Count 328 K/mcL (140-400); Red Blood Count 3.76 M/mcL (4.19-5.50); Red Cell Distribution Width 11.9 % (11.5-14.5)
[2019-01-20 05:34] LABS: BUN/Creatinine Ratio 14 (6-26); Blood Urea Nitrogen 18 mg/dL (8-23); Calcium 8.3 mg/dL (8.6-10.3); Carbon Dioxide 18 mEq/L (23-29); Chloride 103 mEq/L (98-107); Glucose 217 mg/dL (70-105); Osmolality,Calculated 282 (280-300); Sodium 132 mEq/L (136-145); eGFR For African Americans > 60 (> 60); eGFR For Non-African Americans 53 (> 60)
[2019-01-20] MEDS: *HR* Heparin 5,000 UNIT/ML VIAL SQ SCH (05:41)
[2019-01-20 07:00] VITALS: BP 105/62
[2019-01-20] MEDS ORDERED: 0.9 % Sodium Chloride 1,000 ML IVC ONE (08:25)
[2019-01-20] MEDS: hydroCHLOROthiazide 25 MG TABLET PO SCH (08:58)
[2019-01-20] MEDS: Loratadine 10 MG TABLET PO SCH (09:04)
[2019-01-20] MEDS: Artificial Tears SOLN 15 ML BOTTLE BOTH EYES SCH ×2 (09:05→13:21)
[2019-01-20] MEDS: Insulin LISPRO 300 UNITS/3 ML VIAL SQ SCH ×2 (09:06→13:21)
--- NOTE | 2019-01-20 11:10 | Discharge Summary ---
- NOTES TO OUTPATIENT PROVIDER Notes to Outpatient Provider: Recheck BMP tomorrow to monitor renal improvment. Patient may need further adjustment to his insulin regimen Orders not resulted at time of discharge: Pending orders 01/17/19 14:41 Drug Screen 9 Reflex Conf Qnt Stat Date of Encounter: 01/20/19 Time of Encounter: 10:58 - Discharge Diagnosis (1) Hyperglycemic hyperosmolar nonketotic coma Priority: Primary Status: Acute (2) Diabetes Priority: Secondary Status: Acute Qualifiers: Diabetes mellitus type: type 2 Diabetes mellitus senior care insulin use: without senior care use Diabetes mellitus complication status: with hyperglycemia Qualified Code(s): E11.65 - Type 2 diabetes mellitus with hyperglycemia (3) Metabolic acidosis Priority: Secondary Status: Acute (4) Hyponatremia Priority: Secondary Status: Acute (5) CKD (chronic kidney disease) stage 3, GFR 30-59 ml/min Priority: Secondary Status: Acute (6) Leukocytosis Priority: Secondary Status: Acute Qualifiers: Leukocytosis type: unspecified Qualified Code(s): D72.829 - Elevated white blood cell count, unspecified Hospital course: Mr. Mcadams is a 73 year old male with PMH of DM II, HLD presenting with weakness and found to be in HHS. Patient initially was on insulin drip but was transitioned to subq insulin. Patient's A1C was >18.7. Patient was started on long acting insulin and blood sugars stabilized. Patient was evaluated by PT/OT and SNF was recommended. Patient will be discharged to SNF on 30 units Levemir qHS. This will need to be further adjusted as needed. Patient also had FELICIANO from dehydration which responded well to IV fluids. BMP will need to be rechecked to ensure resolution. Patient was clinically stable on day of discharge. - Time Spent with Patient Total time spent providing and/or coordinating discharge services: 40 minutes - Discharge Medications Prescriptions: New Insulin DETEMIR [Levemir] 30 unit SQ HS #0 [id number] Continued Ezetimibe 10 mg PO DAILY Pioglitazone HCl 30 mg PO DAILY Esomeprazole Magnesium [Nexium] 40 mg PO DAILY Tizanidine HCl 4 mg PO BID Losartan Potassium [Cozaar] 100 mg PO DAILY Hydrochlorothiazide [Microzide] 12.5 mg PO DAILY Atorvastatin [Lipitor] 40 mg PO QPM Cetirizine HCl 10 mg PO DAILY Cyclobenzaprine [Flexeril] 10 mg PO TID Changed Metformin HCl 500 mg PO BID #0 Home Medications: Atorvastatin [Lipitor] 40 mg PO QPM 01/17/19 [History] Cetirizine HCl 10 mg PO DAILY 01/17/19 [History] Cyclobenzaprine [Flexeril] 10 mg PO TID 01/17/19 [History] Esomeprazole Magnesium [Nexium] 40 mg PO DAILY 01/17/19 [History] Ezetimibe 10 mg PO DAILY 01/17/19 [History] Hydrochlorothiazide [Microzide] 12.5 mg PO DAILY 01/17/19 [History] Losartan Potassium [Cozaar] 100 mg PO DAILY 01/17/19 [History] Pioglitazone HCl 30 mg PO DAILY 01/17/19 [History] Tizanidine HCl 4 mg PO BID 01/17/19 [History] Insulin DETEMIR [Levemir] 30 unit SQ HS #0 [id number] 01/20/19 [Rx] Metformin HCl 500 mg PO BID #0 01/20/19 [Rx] Allergies/Adverse Reactions: Allergy/AdvReac Type Severity Reaction Status Date / Time bee venom protein (honey bee) Allergy Anaphylaxis Verified 01/17/19 13:02 [place] Allergy Swelling Verified 01/17/19 13:02 of Lip/Tongue/Throat Date of admission: 01/17/19 14:39 Primary care physician: PCP NONE Consults: 01/18/19 12:32 Consult to Occupational Therapy [CONS] Routine Comment: Evaluate, develop and implement POC Reason for Consult: Weakness Does patient have active BEDREST order?: No Is patient medically & hemodynamically stable?: Yes Consult to Physical Therapy [CONS] Routine Comment: Evaluate, develop and implement POC Reason for Consult: Weakness Does patient have active BEDREST order?: No Is patient medically & hemodynamically stable?: Yes Discharging clinician: Max Harris Anticipated date of discharge: 01/20/19 - Constitutional Vitals: Temp Pulse Resp BP Pulse Ox 98.2 F 68 15 105/62 97 01/20/19 06:59 01/20/19 06:59 01/20/19 06:59 01/20/19 06:59 01/20/19 06:59 General appearance: Present: A&O X 3, no acute distress, answers questions appropriately Exam: General: Ill-appearing and in no acute distress. Frail appearing. HEENT: No erythema of posterior pharynx. No exudates. Lymphatics: No mandibular or cervical lymphadenopathy Cardiovascular: RRR. No murmurs. No chest wall tenderness. Lungs: Clear to auscelltation bilaterally. Regular chest rise. Abdomen: Non-tender. No rebound or gaurding. Nl bowel sounds. Extremities: No edema. 2+ pulses radial and pedal pulses Skin: No rahses, abrasions, or contusions. Nl cap refill. Psych: Nl attention. 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 Diffuse 3/5 strength. Sensation to light touch and pinprick intact. [id number]-[id number] and ROM intact. No PD. - Patient Status Disposition: Transfer SNF Condition: Fair Overall status at discharge: patient is progressing back to baseline - Discharge Instructions Follow Up With: NONE,PCP [Primary Care Provider] - - Diet and Activity Activity: as per physical therapy Diet: advance to your usual diet, diabetic diet
--- NOTE | 2019-01-20 11:19 | Physician Discharge Referral ---
ExtendedCare Referral Info Transfer To: SNF Provider in Charge after Transfer: Other Institutional Level of Care: Skilled - Diagnosis (1) Hyperglycemic hyperosmolar nonketotic coma Priority: Primary Status: Acute (2) Diabetes Priority: Secondary Status: Acute (3) Metabolic acidosis Priority: Secondary Status: Acute (4) Hyponatremia Priority: Secondary Status: Acute (5) CKD (chronic kidney disease) stage 3, GFR 30-59 ml/min Priority: Secondary Status: Acute (6) Leukocytosis Priority: Secondary Status: Acute Prognosis: Good - Transfer Medications Home Medications: Atorvastatin [Lipitor] 40 mg PO QPM 01/17/19 [History] Cetirizine HCl 10 mg PO DAILY 01/17/19 [History] Cyclobenzaprine [Flexeril] 10 mg PO TID 01/17/19 [History] Esomeprazole Magnesium [Nexium] 40 mg PO DAILY 01/17/19 [History] Ezetimibe 10 mg PO DAILY 01/17/19 [History] Hydrochlorothiazide [Microzide] 12.5 mg PO DAILY 01/17/19 [History] Losartan Potassium [Cozaar] 100 mg PO DAILY 01/17/19 [History] Pioglitazone HCl 30 mg PO DAILY 01/17/19 [History] Tizanidine HCl 4 mg PO BID 01/17/19 [History] Insulin DETEMIR [Levemir] 30 unit SQ HS #0 [id number] 01/20/19 [Rx] Metformin HCl 500 mg PO BID #0 01/20/19 [Rx] Allergies/Adverse Reactions: Allergy/AdvReac Type Severity Reaction Status Date / Time bee venom protein (honey bee) Allergy Anaphylaxis Verified 01/17/19 13:02 [place] Allergy Swelling Verified 01/17/19 13:02 of Lip/Tongue/Throat - Respiratory Orders Smoking Cessation: Smoking cessation has been advised. For more information, call the [place] Tobacco Quit Line at 2-649-MPJC-NOW. - Rehabiliation Orders Rehab Orders: Evaluation for Physical Therapy, Evaluation for Occupational Th erapy - Treatments May check for fecal impaction rectally daily PRN - Diet Orders No Concentrated Sweets CERTIFICATION: I certify that the transfer of the above named patient to an Extended Care Facility is necessary for the continuing treatment of the diagnosis listed. The above information is true and accurate reflection of patient's current condition. Confidential - Redisclosure prohibited without a patient's written consent.
[2019-01-20] MEDS ORDERED: FLU Vac QV 19-20 (6Month+)/PF 0.5 ML SYRINGE IM ONE (14:32)
[2019-01-20 18:46] LABS: Amphetamines NEGATIVE ng/mL (Cutoff 30); Barbiturates NEGATIVE ng/mL (Cutoff 75); Benzodiazepines NEGATIVE ng/mL (Cutoff 75); Buprenorphine NEGATIVE ng/mL (Cutoff 1); Cocaine NEGATIVE ng/mL (Cutoff 30); Methadone NEGATIVE ng/mL (Cutoff 40); Methamphetamines NEGATIVE ng/mL (Cutoff 30); Opiates NEGATIVE ng/mL (Cutoff 30); Phencyclidine NEGATIVE ng/mL (Cutoff 15)
[2019-01-20] MEDS ORDERED: Insulin DETEMIR 100 UNIT/ML X5UNITS SQ SCH (21:00)
== END 2019-01-20 15:55 | DRG 638 ==
LOC: EMEROOARM 12:26 → SUATTDRO 14:39 → 2NNU 14:39 → 3ANU 01-18 11:47
PROVIDERS: ADMIT Internal Medicine; ATTEND Family Medicine